=== PATIENT | female | born 1955 | race Caucasian/White ===

== ENCOUNTER → 2017-11-24 | Outpatient (CLI) | payer BC ==
[~2017-11-24] MED LIST: ASPI-496 PO; CHOL200024 PO; IBUP-11 PO; LISI1TAB3 PO; LORA10TA3 PO
[2017-11-24 10:45] LABS: ALANINE AMINOTRANSFERASE 25 U/L (12-78); ALBUMIN 3.7 g/dL (3.4-5.0); ANION GAP 7 mmol/L (5-15); CALCIUM 10.2 mg/dL (8.5-10.1); CHLORIDE 102 mmol/L (98-107); CREATININE 0.82 mg/dL (0.55-1.02)
[2017-11-24 10:47] LABS: ALKALINE PHOSPHATASE 134 U/L (45-117); BILIRUBIN,TOTAL 0.4 mg/dL (0.2-1.0)
[2017-11-24 10:54] LABS: BASOPHILS # (AUTO) 0.08 x10^3/uL (0-0.1); BASOPHILS % (AUTO) 1 % (0-1); EOSINOPHILS # (AUTO) 0.11 x10^3/uL (0-0.4); EOSINOPHILS % (AUTO) 2 % (1-7); LYMPHOCYTES # (AUTO) 1.93 x10^3/uL (1-3.4); LYMPHOCYTES % (AUTO) 29 % (22-44); MD NO; MEAN CORPUSCULAR HEMOGLOBIN 31.5 pg (27.0-34.8); MEAN CORPUSCULAR HGB CONC 33.8 g/dL (32.4-35.8); MEAN CORPUSCULAR VOLUME 93.1 fL (80-100); MEAN PLATELET VOLUME 8.1 fL (7.4-10.4); MONOCYTES # (AUTO) 0.55 x10^3/uL (0.2-0.8); MONOCYTES % (AUTO) 8 % (2-9); NEUTROPHILS % (AUTO) 59 % (42-75); PLATELET COUNT 357 x10^3/uL (130-400); RED BLOOD COUNT 4.68 x10^6/uL (3.82-5.3); RED CELL DISTRIBUTION WIDTH 13.7 % (9.6-15.2)
[2017-11-24 11:06] LABS: PROTHROMBIN TIME 10.4 Seconds (9.6-11.5)
== END | disposition home or self-care (01) ==
LOC: STAR 09:31
PROVIDERS: ATTEND Specialist
DX: Z01.818 Encounter for other preprocedural examination (principal); C54.1 Malignant neoplasm of endometrium; Z88.5 Allergy status to narcotic agent
CPT/HCPCS: 36415; 71046; 80053; 85025; 85610; 85730; 86304; 93005

== ENCOUNTER 2017-12-06 05:16 | Day surgery (SDC) | payer BC ==
[~2017-12-06] VITALS: Ht 165.1 cm; Wt 83.0 kg
[2017-12-06] MEDS: LACTATED RINGERS 1,000 ML IV SCH ×2 (07:12→16:47)
[2017-12-06 07:13] VITALS: BP 157/83
[2017-12-06] MEDS ORDERED: ONDANSETRON ODT 8 MG PO ONE (08:00)
[2017-12-06] MEDS ORDERED: GABAPENTIN 300 MG CAPSULE PO ONE (08:00)
[2017-12-06] MEDS ORDERED: ACETAMINOPHEN 500 MG TABLET PO ONE (08:00)
[2017-12-06] MEDS ORDERED: OxyconTIN ER 10 MG TAB.ER PO ONE (08:00)
[2017-12-06] MEDS ORDERED: HEPARIN 1,000 UNITS/ML, 10ML ONE (09:22)
[2017-12-06] MEDS ORDERED: BUPIVACAINE/PF-EPI 0.25% 1:200K ONE (09:22)
[2017-12-06] MEDS ORDERED: INDOCYANINE GREEN 25 MG VIAL ONE (09:22)
[2017-12-06] MEDS ORDERED: MIDAZOLAM 1 MG/ML, 2ML ONE (09:23)
[2017-12-06] MEDS ORDERED: FENTANYL PF 250 MCG/5ML ONE (09:23)
[2017-12-06] MEDS ORDERED: CEFAZOLIN 1,000 MG ONE (09:58)
[2017-12-06] MEDS ORDERED: ROCURONIUM 10 MG/ML,10ML ONE (09:58)
[2017-12-06] MEDS ORDERED: PROPOFOL 50 ML ONE (10:00)
[2017-12-06] MEDS ORDERED: FLUORESCEIN SODIUM 500 MG/5 ML ONE (11:10)
[2017-12-06] MEDS ORDERED: LABETALOL 5MG/ML, 20ML IV PRN (11:30)
[2017-12-06] MEDS ORDERED: PROMETHAZINE 25 MG SUPP PR PRN (11:30)
[2017-12-06] MEDS ORDERED: EPHEDRINE 50 MG/ML, 1ML IVPush PRN (11:30)
[2017-12-06] MEDS ORDERED: MORPHINE SULFATE 4 MG/ML, 1ML IVPush PRN (11:30)
[2017-12-06] MEDS ORDERED: MIDAZOLAM 1 MG/ML, 2ML IV PRN (11:30)
[2017-12-06] MEDS ORDERED: ONDANSETRON 2MG/ML, 2ML IV PRN (11:30)
[2017-12-06] MEDS ORDERED: PROMETHAZINE 25 MG/ML, 1ML IV PRN (11:30)
[2017-12-06] MEDS ORDERED: EPHEDRINE 50 MG/ML, 1ML IM PRN (11:30)
[2017-12-06] MEDS ORDERED: MEPERIDINE/PF 25MG/0.5ML IVPush PRN (11:30)
[2017-12-06] MEDS ORDERED: DEXAMETHASONE 4 MG/ML, 1ML IV PRN (11:30)
[2017-12-06] MEDS ORDERED: DIPHENHYDRAMINE 50 MG/ML, 1ML IVPush PRN (11:30)
[2017-12-06] MEDS ORDERED: PROMETHAZINE 12.5 MG SUPP PR PRN (11:30)
[2017-12-06] MEDS ORDERED: FENTANYL PF 100 MCG/2ML IV PRN (11:30)
[2017-12-06] MEDS ORDERED: ONDANSETRON ODT 8 MG PO PRN (11:30)
[2017-12-06] MEDS ORDERED: ONDANSETRON 2MG/ML, 2ML ONE (11:45)
[2017-12-06] MEDS ORDERED: GLYCOPYRROLATE 0.4 MG/2 ML, 2ML ONE (11:45)
[2017-12-06] MEDS ORDERED: DEXAMETHASONE 4 MG/ML, 1ML ONE (11:45)
[2017-12-06] MEDS ORDERED: KETOROLAC 30 MG/1 ML ONE (12:12)
[2017-12-06] MEDS ORDERED: KETOROLAC 30 MG/1 ML IV PRN (12:30)
== END 2017-12-06 18:15 | disposition home or self-care (01) ==
LOC: OUT 05:16
PROVIDERS: ATTEND Specialist
DX: C54.1 Malignant neoplasm of endometrium (principal); D27.0 Benign neoplasm of right ovary; N88.8 Other specified noninflammatory disorders of cervix uteri; R59.1 Generalized enlarged lymph nodes; I10 Essential (primary) hypertension; Z88.5 Allergy status to narcotic agent
CPT/HCPCS: 36415; 38500; 38900; 58571; 86850; 86900; 88112; 88305; 88307; 88331; 88333; J0690; J1100; J1644; J1885; J2250; J2405; J2704; J3010; J7120; Q0162; S2900